=== PATIENT | female | born 1950 | race Caucasian/White ===

== ENCOUNTER 2021-03-19 10:45 | Day surgery (SDC) | payer MEDICARE, BC ==
--- OUTSIDE RECORDS SUMMARY | 2021-01-08 08:58 | XMSREPORT | Referral Summary ---
:1950 Author Organization [facility] Address [address] [place] [address] [address] [place] [address] Care Team Providers Name Role Phone Caryl Alonso PA-C Primary Care Provider Caryl Alonso PA-C Attributed Provider Reason for Referral Transitions of Care (Routine) Status Reason Specialty Diagnoses / Referred By Referred To Procedures Contact Contact New Request Patient Diagnoses Screen for colon cancer Lana Alonso, [facility] [address] [place] [address] [place] [place] [address] [address] [place], [place] Phone: [phone] Phone: Reason for Visit Reason Comments AWV-Annual Medicare Wellness Visit Knee Pain corona knee pain, fell about 5 weeks ago Encounter Details Date Type Department Care Team Description 01/07/2021 Office Visit [facility] Lana Alonso, Routine gene ral medical examination at a health care facility (Primary Dx); [facility] Screen for colon cancer [address] [address] [place] [facility] [place] [address] [place] [address] Allergies Active Allergy Reactions Severity Noted Date Comments Acyclovir Edema 01/22/2013 documented as of this encounter (statuses as of 01/07/2021) Medications Medication Sig Dispensed Refills Start Date End Date Status acetaminophen-caffeine Take 2 tablets 0 Active (EXCEDRIN TENSION by mouth every 6 HEADACHE) 500-65 MG TABS hours as needed. Vitamin D, Take 4,000 Units 0 Ac tive Cholecalciferol, 1000 by mouth 1 time UNITS CAPS per day Cyanocobalamin (B-12) Take 2,500 mg by 0 11/29/2018 Active 2500 MCG TABS mouth 1 time per day Biotin w/ Vitamins C & E Take 2 gummy by 0 Active (HAIR SKIN & NAILS mouth 1 time per GUMMIES PO) day calcium carbonate (OSCAL Take 1,000 mg by 0 Active 500) 500 mg tablet mouth 2 times a day with meals CINNAMON PO Take 1 tablet by 0 A ctive mouth 1 time per day Turmeric (QC TUMERIC Take 420 mg by 0 Active COMPLEX PO) mouth tiZANidine (ZANAFLEX) 2 Take 1 tablet (2 30 tablet 4 1 Active mg tabletIndications: mg) by mouth at Spasm of muscle, back bedtime as needed for muscle spasm for up to 10 days aspirin 325 mg tablet Take 650 mg by 0 Active mouth as needed documented as of this encounter (statuses as of 01/07/2021) Active Problems Problem Noted Date Scoliosis of lumbar spine 10/08/2020 Lumbar stenosis with neurogenic claudication 1 Foraminal stenosis of lumbar region 10/08/2020 Vitreous detachment of both eyes 11/27/2018 CKD (chronic kidney disease) stage 3, GFR 30-59 ml/min 11/23/2018 Overweight (BMI 25.0-29.9) 11/23/2018 Nuclear senile cataract of both eyes 11/16/2017 Postmenopausal atrophic vaginitis 06/03/2014 De Quervain's tenosynovitis 01/28/2014 Myopia 07/30/2013 Deviated nasal septum 09/27/2011 Esophageal reflux 09/27/2011 Pure hypercholesterolemia 10/29/2010 documented as of this encounter (statuses as of 01/07/2021) Resolved Problems Problem Noted Date Resolved Date Presbyopia 07/30/2013 01/03/2020 Preoperative examination 09/21/2011 01/30/2013 documented as of this encounter (statuses as of 01/07/2021) Immunizations Name Administration Dates Next Due FLU VACCINE TRIVALENT 05/31/2013 MULTIDOSE(Fluvirin,Afluria) FLU VACCINE 05/26/2015 MULTIDOSE(6MO+Fluzone/Flulaval;3YR+Afl uria) FLU VACCINE HIGH DOSE 65YR+(Fluzone) 04/09/2020, 05/24/2019, 04/18/2018, 06/28/2017, 06/07/2016 FLU VACCINE MULTIDOSE 05/28/2014 0.5mL(6MO+Fluzone/Flulaval,Afluria) Influenza Vaccine 05/28/2011, 06/16/2010 Influenza Vaccine,unspecified 05/12/2009, 05/16/2008 Moderna COVID-19 Vaccine 10/09/2020, 09/11/2020 Pneumococcal Conj PCV13 01/11/2018 Pneumococcal Polysaccharide PPSV23 12/03/2016, 07/19/2011 TDAP 03/18/2009 Td(adult)preservative free 11/23/2018 Zoster Live(Zostavax) 04/16/2011 Zoster Recombinant (Shingrix) 09/06/2018, 11/16/2017 documented as of this encounter Social History Tobacco Use Types Packs/Day Years Used Date Former Smoker Cigarettes 0.25 0.25 1970 - 0 08/01/2009 Smokeless Tobacco: Former User Alcohol Use Standard Drinks/Week Comments Yes 11 (1 standard drink = 0.6 oz pure alcoh ol) 3 drinks/week Alcohol Habits Answer Date Recorded How often do you have a drink containing alcohol? 2-3 times a week 01/06/2021 How many drinks containing alcohol do you have on a 1 or 2 01/06/2021 typical day when you are drinking? How often do you have six or more drinks on one Never 01/06/2021 occasion? Social Isolation Answer Date Recorded In a typical week, how many times do you More than three georgie es a week 01/06/2021 talk on the phone with family, friends, or neighbors? How often do you get together with friends Once a week 01/06/2021 or relatives? How often do you attend islam or More than 4 times per year 01/06/2021 restorationism services? Do you belong to any clubs or No 01/06/2021 organizations such as islam groups, unions, fraternal or athletic groups, or school groups? How often do you attend meetings of the Never 10/06/2020 clubs or organizations you belong to? Are you now , , , 01/06/2021 , never or living with a partner? Physical Activity Answer Date Recorded On average, how many days per week do you engage in moderate to 6 days 01/06/2021 strenuous exercise (like walking fast, running, jogging, dancing, swimming, biking, or other activities that cause a light or heavy sweat)? On average, how many minutes do you engage in exercise at th is 30 min 01/06/2021 level? Stress Answer Date Recorded Do you feel stress - tense, restless, nervous, or anxious, N ot at all 01/06/2021 or unable to sleep at night because your mind is troubled all the time - these days? Education Answer Date Recorded What is the highest level of school you have Some college, n o degree 11/12/2020 completed or the highest degree you have received? Financial Resource Strain Answer Date Recorded How hard is it for you to pay for the very basics like Not h ewa at all 10/06/2020 food, housing, medical care, and heating? Intimate Partner Violence Answer Date Recorded Within the last year, have you been afraid of your partner o r No 01/06/2021 ex-partner? Within the last year, have you been humiliated or emotionall y No 01/06/2021 abused in other ways by your partner or ex-partner? Within the last year, have you been kicked, hit, slapped, or No 01/06/2021 otherwise physically hurt by your partner or ex-partner? Within the last year, have you been raped or forced to have any No 01/06/2021 kind of sexual activity by your partner or ex-partner? Food Insecurity Answer Date Recorded Within the past 12 months, you worried that your food would Never true 01/06/2021 run out before you got money to buy more. Within the past 12 months, the food you bought just didn't N ever true 01/06/2021 last and you didn't have money to get more. Transportation Needs Answer Date Recorded In the past 12 months, has lack of transportation kept you f rom No 01/06/2021 medical appointments or from getting medications? In the past 12 months, has lack of transportation kept you f rom No 01/06/2021 meetings, work, or getting things needed for daily living? Sexually Active Control Partners Comments Not Currently Surgical Male Sex Assigned at Date Recorded Not on file documented as of this encounter Last Filed Vital Signs Vital Sign Reading Time Taken Comments Blood Pressure 128/64 01/07/2021 8:58 AM CDT Pulse 80 01/07/2021 8:58 AM CDT Temperature 36 C (96.8 F) 01/07/2021 8:58 AM CDT Respiratory Rate 16 01/07/2021 8:58 AM CDT Oxygen Saturation 97% 01/07/2021 8:58 AM CDT Inhaled Oxygen Concentration - - Weight 71.7 kg (158 lb 1.6 oz) 01/07/2021 8:58 AM CDT Height 162.6 cm (5' 4") 01/07/2021 8:58 AM CDT Body Mass Index 27.14 01/07/2021 8:58 AM CDT documented in this encounter Functional Status Functional Status Response Date of Assessment Do you have difficulty with walking, balance, climbing No 01/07/2021 stairs, or had a fall in the last 3 months? documented as of this encounter Plan of Treatment Date Type Specialty Care Team Description 01/09/2021 Office Visit Kendell Nettles, [facility] [address] [place] [address] [phone] Name Type Priority Associated Diagnoses Order S [facility] CLINIC REFERRAL Referral Routine Screen for colon cancer O rdered: 01/07/2021 ENDOSCOPY NON ONE CHART documented as of this encounter Visit Diagnoses Diagnosis Routine general medical examination at a health care facility - Primary Screen for colon cancer Special screening for malignant neoplasm s, colon documented in this encounter
[~2021-03-19 10:45] MED LIST: Lactated Ringers 1,000 ML IV SCH
[2021-03-19] MEDS ORDERED: Propofol 200 MG/20 ML SDV ONE ×3 (11:34→12:14)
--- NOTE | 2021-03-19 15:32 | OR ---
DATE OF SURGERY: 03/19/2021. REFERRING PROVIDER: Lana Alonso PA-C in [place]. PRE-OPERATIVE DIAGNOSIS: Screening colonoscopy. The patient's last colonoscopy was 10 years ago and was normal per patient report. She denies any family history of colon cancer. She does have history of hemorrhoid which can bleed on occasion. POST-OPERATIVE DIAGNOSES: 1. Total of 3 small colon polyps removed using cold forceps. a. 3 mm cecal polyp. b. 2 mm polyp at 70 cm. c. 3 mm at 50 cm. 2. Mild hemorrhoids, not acutely inflamed. 3. Tortuous redundant colon. PROCEDURE: Colonoscopy with polypectomy x3 using cold forceps. SURGEON: Mario Castaneda M.D. ANESTHESIA: Monitored anesthesia care. BOWEL PREP: Good. Kaya is a 70-year-old female who was brought to the endoscopy suite after discussing risks and benefits of the procedure. Informed consent was obtained for conscious sedation and colonoscopy with or without biopsy and/or polypectomy. We also discussed possibility of missed lesions. Pre-procedure exam was unremarkable. IV, oxygen, and monitors were placed. The patient was placed in the left lateral decubitus position. Sedation was administered and a digital rectal exam was performed and unremarkable except for some external hemorrhoids, not acutely inflamed. Colonoscope was passed into the rectum and slowly advanced all the way to the cecum. The patient did have a rather tortuous redundant colon. Cecum was viewed and photographed. Within the cecum, there was a 3 mm cecal polyp removed using cold forceps with a couple of bites. The colonoscope was slowly withdrawn and the mucosa was closed observed in a direct circumferential manner. The ascending colon revealed 2 mm polyp at 70 cm that is near hepatic flexure. The transverse colon was remarkable for a 3 mm polyp at 50 cm, removed using cold forceps. The descending colon and sigmoid colon were unremarkable. Retroflexion was performed and rectal mucosa was remarkable for some mild hemorrhoids, not acutely inflamed. Scope was removed. The patient tolerated the procedure well. The patient was monitored until that baseline status. Discharge instructions were reviewed and the patient was discharged in good condition. COMPLICATIONS: None. TOTAL TIME: 36 minutes. ESTIMATED BLOOD LOSS: 1 to 2 mL. RECOMMENDATIONS/FOLLOW-UP: We will await results of path report to determine ideal followup interval. We will have the patient hold her aspirin for about 3 days to limit any chance of bleeding from the polypectomy sites. I would like to kindly thank Lana Alonso for this referral. DMB: 03/19/2021 12:48:02 MODL: 03/19/2021 13:17:48 /[id number]
== END 2021-03-19 13:21 | disposition home or self-care (01) ==
LOC: VM.SDS 10:45
PROVIDERS: ATTEND Family Medicine
DX: Z12.11 Encounter for screening for malignant neoplasm of colon (principal); D12.6 Benign neoplasm of colon, unspecified; K63.89 Other specified diseases of intestine; K64.4 Residual hemorrhoidal skin tags; E78.00 Pure hypercholesterolemia, unspecified; N18.30 Chronic kidney disease, stage 3 unspecified; Z88.8 Allergy status to other drugs, medicaments and biological substances; Z87.891 Personal history of nicotine dependence
CPT/HCPCS: 00812; 88305; J2704; J7120